=== PATIENT | male | born 1955 ===

== ENCOUNTER 2016-04-08 19:05 | Observation (INO) | payer OTHER ==
[2016-04-08] MEDS ORDERED: ASPIRIN 81 MG CHEWABLE TAB PO ONE (19:13)
--- NOTE | 2016-04-08 19:15 | CPEKG ---
Heart Rate: 75 RR Interval: 800 P-R Interval: 168 QRSD Interval: 94 QT Interval: 360 QTC Interval: 402 P [place]: 55 QRS [place]: 97 T Wave [place]: 28 EKG Severity - OTHERWISE NORMAL ECG - EKG Impression: SINUS RHYTHM EKG Impression: RIGHT AXIS DEVIATION Electronically Signed By: Trina Moreno 08-Apr-2016 21:35:41
[2016-04-08 19:22] LABS: % IMMATURE GRANULYOCYTES 0.5 % (0.0-1.1); ABSOLUTE IMMATURE GRANULOCYTES 0.05 10^3/uL (0.00-0.10); ADD DIFF? NO; ADD MORPH? NO; ADD SCAN? NO; ATYPICAL LYMPHOCYTE FLAG 10 (0-99); FRAGMENT RBC FLAG 0 (0-99); HEMATOCRIT 50.7 % (40.0-51.0); HEMOGLOBIN 17.7 g/dL (13.7-17.5); LEFT SHIFT FLG 0 (0-99); LIPEMIA HEMOLYSIS FLAG 90 (0-99); MEAN CELL HEMOGLOBIN 30.4 pg (27.9-34.1); MEAN CELL HEMOGLOBIN CONCENTR. 34.9 g/dL (32.4-36.7); MEAN CELL VOLUME 87.1 fL (81.5-99.8); MEAN PLATELET VOLUME 11.3 fL (8.7-11.7); PLATELET CLUMPS FLAG 0 (0-99); PLATELET COUNT 291 10^3/uL (150-400); RED BLOOD CELL COUNT 5.82 10^6/uL (4.40-6.38)
[2016-04-08 19:31] LABS: APTT 25.3 SEC (23.0-38.0); INR 0.95 (0.83-1.16); PROTIME(PATIENT) 12.6 SEC (12.0-15.0)
[2016-04-08 19:35] LABS: ANION GAP 13 mEq/L (8-16); CALCIUM 9.9 mg/dL (8.5-10.4); CARBON DIOXIDE 25 mEq/l (22-31); CHLORIDE 101 mEq/L (97-110); CREATININE 0.8 mg/dL (0.7-1.3); GLOMERULAR FILTRATION RATE > 60; GLUCOSE 310 mg/dL (70-100); POTASSIUM 4.5 mEq/L (3.5-5.2); SODIUM 139 mEq/L (134-144)
--- NOTE | 2016-04-08 19:45 | EDPHY ---
H & P Time Seen by Provider: 04/08/16 19:07 HPI/ROS: HPI Chest pain. 60-year-old male by ambulance from home. Patient reports onset of substernal chest pressure described as a squeezing and aching at 6:15 p.m.. No radiation. No associated diaphoresis, nausea or vomiting. He has a prior history of coronary artery disease with an KS in January of 2012 and a stent placed at that time. He has not had any further intervention since that time. ROS: Constitutional: No fever, no chills. No weakness. Eyes: No discharge. No changes in vision. ENT: No sore throat. No nasal congestion or rhinorrhea. Respiratory: No cough. No shortness of breath. Cardiac: As above, no palpitations. Gastrointestinal: No abdominal pain, no vomiting, no diarrhea. Genitourinary: No hematuria. No dysuria or increased frequency with urination. Musculoskeletal: No back pain. No neck pain. No myalgias or arthralgias. Skin: No rashes. Neurological: No headache. No focal weakness or altered sensation. Past medical history: As above. 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 Patient also has a history of bladder cancer. He is not currently on chemotherapy. Current medications include aspirin and melatonin. Social history: Nonsmoker. Has a part-time roommate. Here by himself currently. Physical Exam: General Appearance: Alert, no distress. This patient is responding to questions appropriately and in full sentences. This patient appears well- hydrated and well-nourished. Eyes: Pupils equal and round no pallor or injection. No lid edema, erythema or injection. Respiratory: There are no retractions, lungs are clear to auscultation with good air movement bilaterally. Cardiovascular: Regular rate and rhythm. No murmur. Gastrointestinal: Abdomen is soft and nontender, no masses, bowel sounds normal. No focal tenderness at McBurney's point. No Doss sign. Neurological: Motor sensory function is grossly intact. Cranial nerves are normal. Gait is normal. Skin: Warm and dry, no rashes. Musculoskeletal: Neck is supple and nontender. Extremities are symmetrical. All joints range without pain or impingement. Psychiatric: No agitation. No depression. Database: EKG: EKG time is 7:13 p.m.; EKG shows a narrow complex normal sinus rhythm with a ventricular rate of 75. Right axis deviation noted. The WA, QRS, QT intervals are within normal limits. There are no ST-T wave changes indicative of ischemic or injury pattern. No evidence of right heart strain. Interpreted by me. Imaging: Chest x-ray AP portable; the cardiac mediastinal silhouette is unremarkable. No evidence of infiltrate or pneumothorax. No acute cardiopulmonary disease process noted. Interpreted by me. Procedures: Emergency department course: IV placed. Patient placed on a bus monitor. EKG performed. Patient given 324 mg of chewed aspirin. 8:00 p.m., patient re-evaluated. Results of diagnostic test discussed with him. Plan for admission reviewed. He is chest pain-free. All of his questions were answered. 8:15 p.m., case discussed with hospitalist. Hospitalist accepts patient for EACU observation admission. Patient admitted in stable condition. Differential Diagnosis: The differential diagnosis on this patient includes but is not limited to acute coronary syndrome, myocardial infarction. Pulmonary embolism, aortic dissection , myocarditis, pericarditis, pneumothorax, pneumonia unlikely. This represents a partial list of diagnoses considered. These considerations are based on history, physical exam, past history, reassessment and diagnostic testing. Smoking Status: Former smoker Constitutional: Initial Vital Signs O2 Sat (%) 98 04/08/16 19:13 O2 Delivery Mode Nasal Cannula O2 (L/minute) 3 Allergies/Adverse Reactions: No Known Allergies Allergy (Unverified 04/08/16 19:16) Home Medications: Medication Instructions Recorded Aspirin 04/08/16 Melatonin 04/08/16 Medical Decision Making - Data Points Laboratory Results: Laboratory Results 04/08/16 19:10 04/08/16 19:10 04/08/16 04/08/16 04/08/16 19:10 19:10 19:10 WBC 10.09 10^3/uL H 10^3/uL (3.80-9.50) RBC 5.82 10^6/uL 10^6/uL (4.40-6.38) Hgb 17.7 g/dL H g/dL (13.7-17.5) Hct 50.7 % % (40.0-51.0) MCV 87.1 fL fL (81.5-99.8) MCH 30.4 pg pg (27.9-34.1) MCHC 34.9 g/dL g/dL (32.4-36.7) RDW 12.0 % % (11.5-15.2) Plt Count 291 10^3/uL 10^3/uL (150-400) MPV 11.3 fL fL (8.7-11.7) Neut % (Auto) 51.7 % % (39.3-74.2) Lymph % (Auto) 36.0 % % (15.0-45.0) [place] % (Auto) 8.4 % % (4.5-13.0) Eos % (Auto) 2.8 % % (0.6-7.6) Baso % (Auto) 0.6 % % (0.3-1.7) Nucleat RBC Rel Count 0.0 % % (0.0-0.2) Absolute Neuts (auto) 5.22 10^3/uL 10^3/uL (1.70-6.50) Absolute Lymphs (auto) 3.63 10^3/uL H 10^3/uL (1.00-3.00) Absolute Monos (auto) 0.85 10^3/uL H 10^3/uL (0.30-0.80) Absolute Eos (auto) 0.28 10^3/uL 10^3/uL (0.03-0.40) Absolute Basos (auto) 0.06 10^3/uL 10^3/uL (0.02-0.10) Absolute Nucleated RBC 0.00 10^3/uL 10^3/uL (0-0.01) Immature Gran % 0.5 % % (0.0-1.1) Immature Gran # 0.05 10^3/uL 10^3/uL (0.00-0.10) PT 12.6 SEC SEC (12.0-15.0) INR 0.95 (0.83-1.16) APTT 25.3 SEC SEC (23.0-38.0) Sodium 139 mEq/L mEq/L (134-144) Potassium 4.5 mEq/L mEq/L (3.5-5.2) Chloride 101 mEq/L mEq/L (97-110) Carbon Dioxide 25 mEq/l mEq/l (22-31) Anion Gap 13 mEq/L mEq/L (8-16) BUN 11 mg/dL mg/dL (7-23) Creatinine 0.8 mg/dL mg/dL (0.7-1.3) Estimated GFR > 60 Glucose 310 mg/dL H mg/dL (70-100) Calcium 9.9 mg/dL mg/dL (8.5-10.4) Troponin I < 0.012 ng/mL ng/mL (0-0.034) Medications Given: Discontinued Medications Aspirin (Aspirin) 324 mg PO EDNOW ONE Stop: 04/08/16 19:14 Last Admin: 04/08/16 19:17 Dose: Not Given Departure - Departure Disposition: [facility] Inpatient Acute Clinical Impression: Chest pain, History of coronary artery disease Referrals: Patient,NotPresent [Unknown] - As per Instructions
[2016-04-08 19:46] LABS: TROPONIN I < 0.012 ng/mL (0-0.034)
[2016-04-08] MEDS ORDERED: NITROGLYCERIN 0.4 MG BTL SL PRN (20:55)
[2016-04-08] MEDS ORDERED: ACETAMINOPHEN 325 MG TAB PO PRN (20:55)
[2016-04-08] MEDS ORDERED: ONDANSETRON DISINTEGRATING 4 MG TAB PO PRN (20:55)
[2016-04-08] MEDS ORDERED: NON-FORMULARY NEW DRUG (Melatonin [Melatonin 5 Mg] 5 MG) PO SCH (21:00)
--- NOTE | 2016-04-08 21:02 | PDGENHP ---
History and Physical - Chief Complaint Acute chest pain - History of Present Illness PCP: None HPI: 60-year-old male presenting with acute chest pain characterized as moderate to severe achiness located in the substernal area, onset of symptoms around 6:30 p.m., occurring at rest. Duration was probably 5-10 minutes and the symptoms were alleviated by deep breathing. He reports that the began while he was walking into his computer work and this was not a particularly stressful situation. He does report some associated anxiety and stress following his event, mostly directed towards EMS and emergency department staff. Reports that he takes a daily aspirin and he has been adherent to this medication. He has not been taking a beta-shasta as this was not refilled in the past and he does not see a regular doctor. Denies any precipitating pulmonary symptoms and he reports that he has otherwise been in his usual state of health. That being said, he does report recent exertional shortness of breath as well as intermittent exertional chest pain meds most recently 2 weeks ago but these have occurred sporadically throughout the past year. History Information - Allergies/Home Medication List Allergies/Adverse Reactions: No Known Allergies Allergy (Unverified 04/08/16 19:16) Home Medications: Aspirin EC [Aspirin EC 81 mg (*)] 81 mg PO DAILY 04/08/16 [Last Taken 04/08/16 07:00] Melatonin [Melatonin 5 mg] 5 mg PO DAILY 04/08/16 [Last Taken 04/08/16 07:00] I have personally reviewed and updated: family history, medical history, social history, surgical history - Past Medical History coronary artery disease (Status post myocardial infarction January of 2012, stent placed at [facility]) Additional medical history: Bladder cancer status post cystoscopy and chemotherapy salve. Nephrolithiasis. 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 Review of Systems ROS: 10pt was reviewed & negative except for what was stated in HPI & below Constitutional: Reports: other (Anxiety) Cardiac: Reports: chest pain Respiratory: Reports: shortness of breath Physical Exam Temp Pulse Resp BP Pulse Ox 36.5 C 74 20 155/87 H 96 04/08/16 20:00 04/08/16 20:40 04/08/16 20:40 04/08/16 20:40 04/08/16 20:40 Constitutional: no apparent distress (Mild amount of distress an anger), not in pain, No chronically ill appearing, No uncomfortable Eyes: PERRL, anicteric sclera, EOMI Ears, Nose, Mouth, Throat: moist mucous membranes, hearing normal, ears appear normal, no oral mucosal ulcers Cardiovascular: regular rate and rhythym, no murmur, rub, or gallop, No JVD, No edema Respiratory: inspiratory crackles (Bilateral bases), No reduced air movement, No expiratory wheeze, No bronchial breath sounds Gastrointestinal: normoactive bowel sounds, soft, non-tender abdomen, no palpable masses Skin: warm, normal color, no rashes or abrasions, no fluctuance, no induration, No mottled Neurologic: AAOx3, sensation intact bilaterally, No weakness (Motor strength 5/ 5 bilaterally) Psychiatric: not encephalopathic, thought process linear, anxious, other ( Distressed, angry) Lab Data & Imaging Review 04/08/16 19:10 04/08/16 19:10 WBC 10.09 10^3/uL (3.80-9.50) H 04/08/16 19:10 RBC 5.82 10^6/uL (4.40-6.38) 04/08/16 19:10 Hgb 17.7 g/dL (13.7-17.5) H 04/08/16 19:10 Hct 50.7 % (40.0-51.0) 04/08/16 19:10 MCV 87.1 fL (81.5-99.8) 04/08/16 19:10 MCH 30.4 pg (27.9-34.1) 04/08/16 19:10 MCHC 34.9 g/dL (32.4-36.7) 04/08/16 19:10 RDW 12.0 % (11.5-15.2) 04/08/16 19:10 Plt Count 291 10^3/uL (150-400) 04/08/16 19:10 MPV 11.3 fL (8.7-11.7) 04/08/16 19:10 Neut % (Auto) 51.7 % (39.3-74.2) 04/08/16 19:10 Lymph % (Auto) 36.0 % (15.0-45.0) 04/08/16 19:10 [place] % (Auto) 8.4 % (4.5-13.0) 04/08/16 19:10 Eos % (Auto) 2.8 % (0.6-7.6) 04/08/16 19:10 Baso % (Auto) 0.6 % (0.3-1.7) 04/08/16 19:10 Nucleat RBC Rel Count 0.0 % (0.0-0.2) 04/08/16 19:10 Absolute Neuts (auto) 5.22 10^3/uL (1.70-6.50) 04/08/16 19:10 Absolute Lymphs (auto) 3.63 10^3/uL (1.00-3.00) H 04/08/16 19:10 Absolute Monos (auto) 0.85 10^3/uL (0.30-0.80) H 04/08/16 19:10 Absolute Eos (auto) 0.28 10^3/uL (0.03-0.40) 04/08/16 19:10 Absolute Basos (auto) 0.06 10^3/uL (0.02-0.10) 04/08/16 19:10 Absolute Nucleated RBC 0.00 10^3/uL (0-0.01) 04/08/16 19:10 Immature Gran % 0.5 % (0.0-1.1) 04/08/16 19:10 Immature Gran # 0.05 10^3/uL (0.00-0.10) 04/08/16 19:10 PT 12.6 SEC (12.0-15.0) 04/08/16 19:10 INR 0.95 (0.83-1.16) 04/08/16 19:10 APTT 25.3 SEC (23.0-38.0) 04/08/16 19:10 Sodium 139 mEq/L (134-144) 04/08/16 19:10 Potassium 4.5 mEq/L (3.5-5.2) 04/08/16 19:10 Chloride 101 mEq/L (97-110) 04/08/16 19:10 Carbon Dioxide 25 mEq/l (22-31) 04/08/16 19:10 Anion Gap 13 mEq/L (8-16) 04/08/16 19:10 BUN 11 mg/dL (7-23) 04/08/16 19:10 Creatinine 0.8 mg/dL (0.7-1.3) 04/08/16 19:10 Estimated GFR > 60 04/08/16 19:10 Glucose 310 mg/dL (70-100) H 04/08/16 19:10 Calcium 9.9 mg/dL (8.5-10.4) 04/08/16 19:10 Troponin I < 0.012 ng/mL (0-0.034) 04/08/16 19:10 Visualized and Interpreted Chest x-ray results: Yes Chest X-Ray results: other (Bibasilar interstitial markings without focal effusion) Visualized and Interpreted EKG results: Yes EKG Interpretation: Positive for: other (Isolated ST elevation in lead V2, normal sinus rhythm) Assessment & Plan Assessment: 60-year-old male presents with acute chest pain in the setting of known coronary artery disease, hyperglycemia Plan: 1. Chest pain. Acute, new problem this provider, further workup indicated. Potential etiologies include acute coronary syndrome versus unstable angina versus stress and anxiety versus other atypical causes. -patient is high risk for unstable angina given that his symptoms began at rest , he may have exertional angina precipitating this, he has mild leukocytosis, he has known coronary artery history -will treat with empiric beta-shasta, full-dose aspirin, monitoring closely for recurrence of symptoms and if these do recur overnight, then we will initiate heparin drip, administer sublingual nitroglycerin, statin, morphine -I will notify Cardiology in right request consultation for possible cardiac catheterization tomorrow versus nuclear medicine stress test -continue monitor on telemetry, cycle cardiac enzymes -get lipid panel, monitor CBC, perform complete metabolic panel given his history of cholelithiasis -order outside records from [facility] to determine his previous cardiac evaluation 2. Hyperglycemia. Acute, new problem this provider, further workup indicated. Patient reports that he had eaten a sandwich immediately prior to presentation, this is unlikely to cause a blood glucose level of 300 -get hemoglobin A1c -set patient up with a primary care provider referral at time of discharge Diet. Cardiac diet, NPO in a.m. Prophylaxis. Low risk patient, SCDs Code. Full Disposition. Anticipated discharge is 04/09/2016, pending further workup as outlined above. I have discussed patient's presentation with Dr. Trina Moreno in the emergency department, we both agree the patient is appropriate for the EACU.
[2016-04-08] MEDS: METOPROLOL TARTRATE 25 MG TAB PO SCH (21:30)
[2016-04-08] MEDS ORDERED: MELATONIN 3 MG TAB PO SCH (22:00)
--- NOTE | 2016-04-08 22:15 | CPEKG ---
Heart Rate: 62 RR Interval: 968 P-R Interval: 180 QRSD Interval: 86 QT Interval: 392 QTC Interval: 398 P [place]: 49 QRS [place]: 89 T Wave [place]: 52 EKG Severity - OTHERWISE NORMAL ECG - EKG Impression: SINUS RHYTHM EKG Impression: BORDERLINE RIGHT AXIS DEVIATION Electronically Signed By: Can Mojica 09-Apr-2016 12:55:29
[2016-04-09 05:43] LABS: % IMMATURE GRANULYOCYTES 0.4 % (0.0-1.1); ABSOLUTE IMMATURE GRANULOCYTES 0.04 10^3/uL (0.00-0.10); ADD DIFF? NO; ADD MORPH? NO; ADD SCAN? NO; ATYPICAL LYMPHOCYTE FLAG 10 (0-99); FRAGMENT RBC FLAG 0 (0-99); HEMATOCRIT 45.2 % (40.0-51.0); HEMOGLOBIN 15.9 g/dL (13.7-17.5); LEFT SHIFT FLG 0 (0-99); LIPEMIA HEMOLYSIS FLAG 90 (0-99); MEAN CELL HEMOGLOBIN 29.9 pg (27.9-34.1); MEAN CELL HEMOGLOBIN CONCENTR. 35.2 g/dL (32.4-36.7); MEAN CELL VOLUME 85.1 fL (81.5-99.8); MEAN PLATELET VOLUME 11.4 fL (8.7-11.7); PLATELET CLUMPS FLAG 0 (0-99); PLATELET COUNT 271 10^3/uL (150-400); RED BLOOD CELL COUNT 5.31 10^6/uL (4.40-6.38); RED CELL DISTRIBUTION WIDTH 12.1 % (11.5-15.2)
[2016-04-09 06:40] LABS: ALANINE AMINOTRANSFERASE 68 IU/L (21-72); ALBUMIN 2.8 g/dL (3.5-5.0); ALKALINE PHOSPHATASE 47 IU/L (38-126); ANION GAP 7 mEq/L (8-16); ASPARTATE AMINOTRANSFERASE 41 IU/L (17-59); BILIRUBIN,TOTAL 0.7 mg/dL (0.1-1.4); CALCIUM 7.5 mg/dL (8.5-10.4); CARBON DIOXIDE 22 mEq/l (22-31); CHLORIDE 114 mEq/L (97-110); CHOLESTEROL 105 mg/dL (140-220); CHOLESTEROL/HDL RATIO 5.25 RATIO (1.00-4.97); CREATININE 0.6 mg/dL (0.7-1.3); GLOMERULAR FILTRATION RATE > 60; GLUCOSE 148 mg/dL (70-100); HIGH DENSITY LIPOPROTEIN 20 mg/dL (40-65); LOW DENSITY LIPOPROTEIN 50 mg/dL (80-100); NON-HIGH DENSITY LIPOPROTEIN 85 mg/dL (90-129); POTASSIUM 3.6 mEq/L (3.5-5.2); SODIUM 143 mEq/L (134-144); TOTAL PROTEIN 5.8 g/dL (6.3-8.2); TRIGLYCERIDE 176 mg/dL (40-150); VERY LOW DENSITY LIPOPROTEINS 35 mg/dL (8-25)
[2016-04-09 06:50] LABS: CREATINE KINASE-MB FRACTION 1.11 ng/mL (0-3.19); TROPONIN I < 0.012 ng/mL (0-0.034)
[2016-04-09] MEDS ORDERED: ASPIRIN 325 MG TAB PO SCH (09:00)
--- NOTE | 2016-04-09 09:31 | ECHO ---
[id number] + + [address] : : [place] [address] : : [phone] + + Adult Echocardiographic Report + -+ :Name: Yumiko VAZQUEZsabra Date: 04/09/2016 08:15 AM : : Hospital Admission Number: [id number] : :: 1955 Gender: Male Height: 72 in : :Age: 60 yrs Race: PTD Weight: 215 lb : :Reason For Study: CP : : BSA: 2.2 meters 2: :History: RI : + -+ MMode/2D Measurements \T\ Calculations IVSd: 1.3 cm RVDd: 3.1 cm FS: 42.7 % LVOT diam: 2.0 cm LVPWd: 1.1 cm LVIDd: 3.7 cm EDV(Teich): LVOT area: LVIDs: 2.1 cm 56.3 ml 3.1 cm2 ESV(Teich): 14.2 ml EF(Teich): 74.7 % LVLd ap4: 7.8 cm SV(MOD-sp4): EDV(MOD-sp4): 55.0 ml 86.0 ml LVLs ap4: 6.4 cm ESV(MOD-sp4): 31.0 ml EF(MOD-sp4): 64.0 % Normal Measurement Values: + + :LVIDd (3.5-5.7cm) IVSd (0.6-1.1cm) LVPWd (0.6-1.1cm) Aortic Root (2.0-3.7cm)Left Atrium (1.5-4.0cm): :LV Vol(d) (76-115ml) LV Vol(s) (29-48ml) Ejec Fraction (50-65%)PV Vicente (0.6- 1.2m/s) TV Vicente (0.4-1.0m/s) : :MV E Vicente (0.8-1.0m/s)MV A Vicente (0.3-1.0m/s)LVOT Vicente (0.7-1.2m/s) Asc Ao Vicente ( 0.9-1.8m/s) : + + Doppler Measurements \T\ Calculations MV E max vicente: MV V2 max: Ao V2 max: LV V1 max: 130.0 cm/sec 124.0 cm/sec 130.0 cm/sec 102.0 cm/sec MV A max vicente: MV max PG: Ao max P.1 mmHgLV V1 max P.4 cm/sec 6.2 mmHg Ao mean P.2 mmHg MV E/A: 1.6 MV V2 mean: 5.0 mmHg LV V1 mean PG: MV dec time: 59.5 cm/sec Ao V2 mean: 2.0 mmHg 0.20 sec MV mean P.0 cm/sec LV V1 mean: 2.0 mmHg Ao V2 VTI: 34.0 cm 74.9 cm/sec MV V2 VTI: 38.5 cm DIALLO(I,D): 2.3 cm2 LV V1 VTI: 24.7 cm MVA(VTI): 2.0 cm2 DIALLO(V,D): 2.5 cm2 SV(LVOT): 77.6 ml PA V2 max: TR max vicente: 100.0 cm/sec 158.0 cm/sec PA max PG: TR max P.0 mmHg 10.0 mmHg RAP systole: 10.0 mmHg RVSP(TR): 20.0 mmHg Left Ventricle The left ventricle is normal in size and function. There is mild concentric left ventricular hypertrophy. Ejection Fraction = 65-70%. There is Doppler evidence for diastolic dysfunction. No regional wall motion abnormalities noted. Right Ventricle The right ventricle is normal in size and function. Atria The left atrial size is normal. Right atrial size is normal. The interatrial septum is intact with no evidence for an atrial septal defect. Mitral Valve The mitral valve is normal in structure and function. There is no mitral valve stenosis. There is no mitral regurgitation noted. Tricuspid Valve The tricuspid valve is normal in structure and function. There is no tricuspid stenosis. There is trace tricuspid regurgitation. Right ventricular systolic pressure is normal. Aortic Valve There is mild aortic valve calcification. There is no aortic stenosis. There is no aortic insufficiency. Pulmonic Valve The pulmonic valve is normal in structure and function. There is no pulmonic valvular stenosis. There is no pulmonic valvular regurgitation. Great Vessels The aortic root is normal size. Pericardium/Pleural There is a fat pad seen. Conclusion A complete two-dimensional transthoracic echocardiogram was performed (2D, M-mode, Doppler and color flow Doppler). The left ventricle is normal in size and function. There is mild concentric left ventricular hypertrophy. Ejection Fraction = 65-70%. There is Doppler evidence for diastolic dysfunction. There is trace tricuspid regurgitation. Right ventricular systolic pressure is normal. There is mild aortic valve calcification. Final Reading Physician: Cody Andrews signed on 04/09/2016 09:30 AM Ordering Physician: STEVE CROWDER Performed By: Carol Rodriguez
[2016-04-09] MEDS ORDERED: ATROPINE SULFATE 1 MG/10 ML SYR IVP PRN (10:18)
[2016-04-09] MEDS ORDERED: ONDANSETRON 4 MG/2 ML VIAL IVP PRN (10:18)
[2016-04-09] MEDS ORDERED: HYDROCODONE/APAP 5/325 TAB PO PRN (10:18)
--- NOTE | 2016-04-09 12:11 | HOSPPROG ---
Hospitalist Progress Note Assessment/Plan: 60 yo M w atypical cp, neg eval home today outpt stress await a1c see dc summary Subjective: neg trop, normal echo, no events on tele. case d/w dr castanon Objective: Vital Signs Temp Pulse Resp BP Pulse Ox 36.3 C 62 17 139/79 H 97 04/09/16 08:00 04/09/16 08:00 04/09/16 08:00 04/09/16 08:00 04/09/16 08:00 Laboratory Results 04/09/16 05:10 04/09/16 05:10 PT 12.6 SEC (12.0-15.0) 04/08/16 19:10 INR 0.95 (0.83-1.16) 04/08/16 19:10 - Physical Exam Constitutional: no apparent distress, appears nourished Eyes: PERRL, anicteric sclera Ears, Nose, Mouth, Throat: moist mucous membranes, hearing normal Cardiovascular: regular rate and rhythym, no murmur, rub, or gallop Respiratory: no respiratory distress Gastrointestinal: normoactive bowel sounds, soft, non-tender abdomen Genitourinary: no bladder fullness, No be in urethra Skin: warm, normal color Musculoskeletal: full muscle strength ICD10 Worksheet Patient Problems: Problems Problem Status Onset Chest pain Acute History of coronary artery disease Acute
[2016-04-09 12:15] VITALS: BP 130/71; PULSE 68; RESP 18; TEMP 97.5; O2SAT 95
[2016-04-09] MEDS: METOPROLOL TARTRATE 25 MG TAB PO SCH (12:16)
--- NOTE | 2016-04-09 12:32 | GDS ---
DISCHARGE DIAGNOSES: 1. Atypical chest pain. 2. Coronary artery disease. 3. Hyperglycemia with no previous known history of diabetes. HOSPITAL COURSE: Please see admission history and physical by Dr. Joshua Nicole. The patient present ed with chest pain that was unlike his anginal pain. He had negative troponins, nonischemic EKG and no events on telemetry, an echocardiogram without focal wall motion abnormalities, and intact LVEF. The patient was offered cardiac catheterization by Dr. Manzo, and there was some issue with potential insurance coverage versus not, so he ultimately declined. I discussed the patient's plan of care w ith Dr. Manzo, who felt that outpatient stress is reasonable. The patient has been lost to followup with his primary electrician, and his current cardiac medication is baby aspirin. I restarted his beta blockers. LDL is 50, so statin likely not warranted. Regarding his hyperglycemia, nonfasting sample was 310. It was 148 this morning. This is consisten t with likely diabetes. Hemoglobin A1c is pending. I will call him Monday with that result and pote ntially prescribe metformin. He was discharged to home with understanding of the plan. Prescriptions for nitroglycerin and metop rolol. /[id number]/MODL
== END 2016-04-09 12:31 | disposition home or self-care (01) ==
LOC: EDUNIT# → F1N 20:54
PROVIDERS: ADMIT Internal Medicine; ATTEND Internal Medicine
DX: R07.89 Other chest pain (principal); I25.10 Atherosclerotic heart disease of native coronary artery without angina pectoris; R73.9 Hyperglycemia, unspecified; I25.2 Old myocardial infarction; Z95.5 Presence of coronary angioplasty implant and graft; Z79.82 Long term (current) use of aspirin; Z85.51 Personal history of malignant neoplasm of bladder; Z87.891 Personal history of nicotine dependence
CPT/HCPCS: 71010; 93005; 93306; G0378

== ENCOUNTER → 2016-08-01 | Outpatient (CLI) | payer OTHER | LOC: FIMAGING 09:52 | PROVIDERS: ATTEND Family Medicine | DX: E16.1 Other hypoglycemia (principal) ==